=== PATIENT | male | born 1950 | race American Indian/Alaskan Native ===

== ENCOUNTER 2017-07-07 03:25 | Emergency (ER) | payer MEDICARE ==
[2017-07-07] MEDS ORDERED: ASPIRIN PO ONE (05:16)
[2017-07-07 05:47] LABS: Basophils # (Auto) 0.1 K/mm3 (0.0-0.1); Eosinophils # (Auto) 0.5 K/mm3 (0.0-0.4); Eosinophils % (Auto) 6.7 % (0.0-4.3); Hematocrit 36.6 % (35.5-45.6); Lymphocytes # (Auto) 2.5 K/mm3 (1.2-5.4); Mean Corpuscular HGB Conc 36 % (32-34); Mean Corpuscular Hemoglobin 30 pg (28-32); Mean Corpuscular Volume 86 fl (84-94); Monocytes # (Auto) 0.7 K/mm3 (0.0-0.8); Monocytes % (Auto) 8.4 % (0.0-7.3); Platelet Count 292 K/mm3 (140-440); Red Blood Count 4.27 M/mm3 (3.65-5.03); Red Cell Distribution Width 12.7 % (13.2-15.2)
[2017-07-07 06:01] LABS: BUN/Creatinine Ratio 16; Blood Urea Nitrogen 16 mg/dL (9-20); Calcium 8.9 mg/dL (8.4-10.2); Hemolysis Index 3
--- NOTE | 2017-07-07 09:45 | Emergency Department Report ---
ED General Adult HPI - General Chief complaint: High BP Stated complaint: HIGH BLOOD PRESSURE Time Seen by Provider: 07/07/17 08:31 Source: patient, EMS (ems notes not available at time of chart dictation), RN notes reviewed Mode of arrival: Ambulatory Limitations: No Limitations - History of Present Illness Initial comments: This is a 67-year-old male who is unknown to this provider previously. He presents to the ER with a complaint of resolved tachycardia and elevated blood pressure. He reports it woke him out of his sleep this morning at 1:30 in the morning. He reports a heart rate in the 130s and blood pressure in the 180s. The symptoms are now resolved. He has no pain. He did not have any pain. He reports a negative exercise stress test early [place] here with his private compensation specialist up at [facility]. He denies DVT and pulmonary embolus risk factors. His symptoms did not radiate anywhere, and the did not have exacerbating or relieving factors. He denies caffeine and stimulant ingestion, with the exception of coffee, which he consumes daily. -: Sudden Consistency: now resolved Improves with: none Worsens with: none Associated Symptoms: other (as per history of present illness). denies: confusion, chest pain, cough, diaphoresis, fever/chills, headaches, loss of appetite, malaise, nausea/vomiting, rash, seizure, shortness of breath, syncope , weakness - Related Data Allergies Allergy/AdvReac Type Severity Reaction Status Date / Time No Known Allergies Allergy Unverified 07/07/17 05:10 ED Review of Systems ROS: Stated complaint: HIGH BLOOD PRESSURE Other details as noted in HPI Comment: All other systems reviewed and negative Cardiovascular: palpitations. denies: chest pain Neurological: denies: headache, weakness, numbness, paresthesias, confusion, abnormal gait, vertigo ED Past Medical Hx - Past Medical History Previous Medical History?: Yes Hx Hypertension: Yes Hx Diabetes: Yes Additional medical history: Prostate problems - Surgical History Past Surgical History?: Yes Hx Cholecystectomy: Yes Additional Surgical History: Prostate surgery - Social History Smoking Status: Never Smoker ED Physical Exam - General Limitations: No Limitations General appearance: alert, in no apparent distress - Head Head exam: Present: atraumatic, normocephalic - Eye Eye exam: Present: normal appearance, PERRL, EOMI, other (visual acuity intact to finger counting, color perception, reading at a close distance). Absent: nystagmus - ENT ENT exam: Present: normal exam, normal orophraynx, mucous membranes moist, normal external ear exam - Neck Neck exam: Present: normal inspection, full ROM - Respiratory Respiratory exam: Present: normal lung sounds bilaterally. Absent: respiratory distress - Cardiovascular Cardiovascular Exam: Present: regular rate, normal rhythm, normal heart sounds. Absent: bradycardia, tachycardia, irregular rhythm, systolic murmur, diastolic murmur, rubs, gallop - GI/Abdominal GI/Abdominal exam: Present: soft, normal bowel sounds. Absent: distended, tenderness, guarding, rebound, rigid - Rectal Rectal exam: Present: deferred - Extremities Exam Extremities exam: Present: normal inspection, full ROM, normal capillary refill , other (there is no palpable cord. There is a negative Homans sign.). Absent : tenderness, pedal edema, joint swelling, calf tenderness - Back Exam Back exam: Present: normal inspection, full ROM. Absent: tenderness, CVA tenderness (R), paraspinal tenderness, vertebral tenderness - Neurological Exam Neurological exam: Present: alert, oriented X3, CN II-XII intact, normal gait, other (Extraocular movements intact. Tongue midline. No facial droop. Facial sensation intact to light touch in the V1, V2, V3 distribution bilaterally. 5 and 5 strength in 4 extremities.. Sensation is intact to light touch in 4 extremities.). Absent: motor sensory deficit - Psychiatric Psychiatric exam: Present: normal affect, normal mood - Skin Skin exam: Present: warm, dry, intact, normal color. Absent: rash ED Course Vital Signs 07/07/17 07/07/17 07/07/17 03:30 03:46 04:49 Temperature Pulse Rate 97 H 96 H 93 H Respiratory 33 H 24 19 Rate Blood Pressure 149/79 133/82 Blood Pressure [Left] O2 Sat by Pulse 96 100 Oximetry 07/07/17 07/07/17 07/07/17 05:13 06:32 06:45 Temperature 98.6 F 98.2 F Pulse Rate 101 H 72 Respiratory 20 27 H Rate Blood Pressure 166/110 169/94 Blood Pressure 187/97 [Left] O2 Sat by Pulse 96 92 94 Oximetry 07/07/17 07/07/17 07/07/17 07:00 07:15 07:30 Temperature Pulse Rate 71 67 71 Respiratory 27 H 26 H 27 H Rate Blood Pressure 160/90 160/90 150/88 Blood Pressure [Left] O2 Sat by Pulse 92 93 92 Oximetry 07/07/17 07/07/17 07/07/17 07:45 08:01 08:15 Temperature Pulse Rate 76 70 72 Respiratory 22 24 27 H Rate Blood Pressure 150/88 179/99 179/99 Blood Pressure [Left] O2 Sat by Pulse 95 93 95 Oximetry 07/07/17 07/07/17 07/07/17 08:30 09:07 09:15 Temperature Pulse Rate 108 H 80 79 Respiratory 24 22 15 Rate Blood Pressure 183/105 179/99 179/99 Blood Pressure [Left] O2 Sat by Pulse 92 95 97 Oximetry 07/07/17 07/07/17 07/07/17 09:30 09:45 10:07 Temperature Pulse Rate 72 76 79 Respiratory 26 H 29 H 18 Rate Blood Pressure 163/102 183/105 Blood Pressure 163/102 [Left] O2 Sat by Pulse 93 92 95 Oximetry ED Medical Decision Making - Lab Data Result diagrams: 07/07/17 05:27 07/07/17 05:27 Vital Signs 07/07/17 07/07/17 05:13 06:45 Temperature 98.6 F 98.2 F Pulse Rate 101 H 78 Respiratory 20 17 Rate Blood Pressure 166/110 Blood Pressure 187/97 [Left] O2 Sat by Pulse 96 97 Oximetry Lab Results 07/07/17 07/07/17 07/07/17 Range/Units 05:27 05:27 08:20 WBC 8.1 (4.5-11.0) K/mm3 RBC 4.27 (3.65-5.03) M/mm3 Hgb 13.0 (11.8-15.2) gm/dl Hct 36.6 (35.5-45.6) % MCV 86 (84-94) fl MCH 30 (28-32) pg MCHC 36 H (32-34) % RDW 12.7 L (13.2-15.2) % Plt Count 292 (140-440) K/mm3 Lymph % (Auto) 31.0 (13.4-35.0) % [place] % (Auto) 8.4 H (0.0-7.3) % Eos % (Auto) 6.7 H (0.0-4.3) % Baso % (Auto) 1.0 (0.0-1.8) % Lymph # 2.5 (1.2-5.4) K/mm3 [place] # 0.7 (0.0-0.8) K/mm3 Eos # 0.5 H (0.0-0.4) K/mm3 Baso # 0.1 (0.0-0.1) K/mm3 Seg Neutrophils % 52.9 (40.0-70.0) % Seg Neutrophils # 4.3 (1.8-7.7) K/mm3 Sodium 146 H (137-145) mmol/L Potassium 3.9 (3.6-5.0) mmol/L Chloride 105.0 (98-107) mmol/L Carbon Dioxide 31 H (22-30) mmol/L Anion Gap 14 mmol/L BUN 16 (9-20) mg/dL Creatinine 1.0 (0.8-1.5) mg/dL Estimated GFR > 60 ml/min BUN/Creatinine Ratio 16 % Glucose 138 H (75-100) mg/dL Calcium 8.9 (8.4-10.2) mg/dL Troponin T < 0.010 < 0.010 (0.00-0.029) ng/mL - EKG Data -: EKG Interpreted by Me EKG shows normal: sinus rhythm Rate: normal - EKG Data When compared to previous EKG there are: previous EKG unavailable 07/07/17 09:42 Sinus, 77 bpm, left axis deviation, borderline high left ventricular voltage, motion artifact, not having chest pain, not consistent with stemi - Medical Decision Making Differential diagnosis, including but not limited to: Hypertension, arrhythmia, Gen. medical evaluation Assessment and plan, this is a 67-year-old male who presents to the ER with an initial complaint of elevated blood pressure and tachycardia, heart rate in the 130s, 140s at home. This is now resolved. He has no pain. There are no pulmonary embolus or DVT risk factors in his low risk by well's criteria. He reports his private compensation specialist is at [facility], and that he had a negative exercise stress test earlier on this year. He also endorses that he saw his primary care doctor last month, and had "normal blood work." Troponins were sent prior to my evaluation, they are negative multiple times, given that patient has no chest pain or shortness of breath, and given that his only complaint was elevated blood pressure and tachycardia, tachycardia of which is resolved, I believe the patient is medically suitable to follow-up as an outpatient for Holter monitor his outpatient compensation specialist. His elevated blood pressure is appreciated, please see the [employer] clinical policy on hypertension that is asymptomatic. Critical care attestation.: If time is entered above; I have spent that time in minutes in the direct care of this critically ill patient, excluding procedure time. ED Disposition Clinical Impression: History of tachycardia, Elevated blood pressure reading Disposition: DC- TO HOME OR SELFCARE Is pt being admited?: No Does the pt Need Aspirin: No Condition: Stable Instructions: Palpitations (ED) Additional Instructions: Continue current outpatient medications. Follow up with your primary care doctor or compensation specialist within the next week for elevated blood pressure and history of fast heart rate. Please note that blood pressure was elevated and this should be followed up by either physician as recommended. Long-term complications of hypertension and elevated blood pressure includes stroke, heart attack, disability, , paralysis, loss of quality of life. Make certain to get at least 7 hours of sleep per night, and avoid stimulants such as caffeine. Return to the ER right away with new pain, worsened pain, migration of pain, fevers, chills, lethargy, irritability, projectile vomiting, change in mental status, confusion, inability to tolerate liquid feeds. Referrals: NGUYEN HUNT MD [Primary Care Provider] - 3-5 Days [facility] [Provider Group] - 3-5 Days [facility] [Provider Group] - 3-5 Days
[2017-07-07 10:08] VITALS: BP 163/102
== END 2017-07-07 10:06 | disposition home or self-care (01) ==
LOC: ED 03:25
DX: I10 Essential (primary) hypertension (principal); E11.9 Type 2 diabetes mellitus without complications
CPT/HCPCS: 36415; 80048; 84484; 85025; 93005; 93010